=== PATIENT | female | born 1980 | race Caucasian/White ===

== ENCOUNTER 2024-01-14 11:21 | Inpatient (IN) | payer OTHER, SELFPAY ==
[2024-01-14] VITALS (8 sets, daily range): BP systolic 106–142; BP diastolic 74–105; BMI 22.0; BMI 19.5
--- NOTE | 2024-01-14 07:56 | ED.GENMED ---
History of Present Illness
General
Chief Complaint: Abdominal Symptoms
Time Seen by Provider: 01/14/24 07:42
History of Present Illness
History of Present Illness:
43-year-old female presents to the emergency department for evaluation of intractable headache and vomiting for the past 2 days. States the symptoms began with a mild to moderate headache that gradually worsened and gradually progressed into
persistent vomiting. Has been unable to tolerate any p.o. fluids. Reports generalized weakness and shakiness as well. Denies any abdominal pain or diarrhea. Reports short of breath symptoms when exerting herself but denies any symptoms of rest,
denies coughing or nasal congestion. No fevers or chills. No primary headache history
Review of Systems
Review of Systems
Allergies reviewed?: Yes
All Other Systems: ROS reviewed and negative except as documented in HPI and ROS
Phy Exam
Physical Exam
Physical Exam:
GEN: Well appearing, NAD, WDWN
HEENT: Oral mucosa moist, no scleral icterus, no nasal congestion
Cardiac: Tachycardic, regular
Lung: No respiratory distress, no tachypnea, lungs clear to auscultation bilaterally
Abdomen: Soft, nontender
MSK: No gross deformity or injuries
Skin: Good color, no pallor or jaundice, no rashes
Neuro: AO x3; CN II-XII grossly intact. BUE strength 5/5 in all pickett, sensation intact and symmetric. BLE strength 5/5 in all pickett, sensation intact and symmetric
Psych: Calm, cooperative
Course
Orders/Labs/Results
Orders:
Orders
01/14/24 07:14
Electrocardiogram (*1) Urgent
Reason for Study: Abdominal Pain
EKG- Treatment ONCE
01/14/24 07:55
0.9% Sodium Chloride 1000 ml [Nss] 1,000 ml IV BOLUS
Ondansetron Injectable [Zofran] 4 mg IV NOW STA
01/14/24 07:56
CT Head W/o Iv Contrast Urgent
Comment:
Reason For Exam: intractable h/a; vomiting
01/14/24 08:06
Add On- LAB Urgent
Tests Added?: HCG qualitative
Complete Blood Count/With Diff Urgent
Comprehensive Metabolic Panel Urgent
HCG, Serum Qualitative Screen Urgent
Comment: ADD ON
Magnesium Urgent
Serum Osmolality Urgent
Comment: ADD ON
01/14/24 08:42
Lactated Ringers [Lr] 1,000 ml IV BOLUS
01/14/24 08:58
Lactic Acid Urgent
Venous Blood Gas Urgent
%Oxygen/Room Air: 99
01/14/24 08:59
Ketorolac [Toradol] 15 mg IV NOW STA
01/14/24 09:05
COVID-19 Antigen Urgent
Source: Nasal Swab
01/14/24 09:22
Add On- LAB Urgent
Tests Added?: serum osmolality
01/14/24 10:41
Admit/Transfer Patient As Directed
Co-Sign Provider:
Level of Care: Inpatient admission
Assign to:: Medical/Surgical
Physician / Group: Rogerio
Diagnosis: Intractable vomiting, headache
Reason for Hospitalization: Pain control
Expected length of stay greater than two midnights?: Yes
ELOS- Estimated Length of Stay in days: 2
I certify the patient meets the requirements for IP care: Yes
PRN Pain Medication Management As Directed
May give lesser potent ordered pain med per pt: Yes
preference::
Protocol:: Medication orders for pain may be administered in a
manner that supports deferring to patient preference
when the pt is:
- Requesting an ordered lesser potent pain medication.
Least to most potent pain medications are defined
as: acetaminophen < NSAID < tramadol < opioids
(morphine, oxycodone, hydromorphone).
- Requesting a lesser dose of the same medication IF
ORDERED.
- Requesting a less intrusive route of administration
if both routes are prescribed by the provider (PO <
IV).
01/14/24 10:42
Code Status As Directed
Resuscitation Status: Full Code
01/14/24 10:50
Drug Screen, Urine [Urine Drug Abuse Screen] Routine
Abnormal Lab Results
01/14/24 01/14/24
08:06 08:58
MCV 104.5 H fL
(81.0-99.0)
MCH 35.0 H pg
(27.0-31.0)
Absolute Neuts (auto) 8.5 H 10^3/uL
(1.4-6.5)
Absolute Lymphs (auto) 0.6 L 10^3/uL
(1.2-3.4)
Absolute Monos (auto) 0.8 H 10^3/uL
(0.1-0.6)
Neutrophils % 85.5 H %
(42.2-75.2)
Lymphocytes % 6.2 L %
(20.5-51.1)
VBG pH 7.17 L*
(7.32-7.43)
VBG pCO2 32 L mmHg
(35-48)
VBG pO2 52 H mmHg
(30-50)
VBG HCO3 11.7 L mmol/L
(22-27)
Carbon Dioxide < 5 L* mmol/L
(22-30)
BUN 6 L mg/dl
(7-17)
Lactic Acid 3.5 H mmol/L
(0.7-2.0)
AST 82 H U/L
(14-36)
ALT 58 H U/L
(0-35)
Total Protein 8.8 H g/dl
(6.3-8.2)
Albumin 5.8 H g/dl
(3.5-5.0)
01/14/24 08:06
01/14/24 08:06
Vital Signs
Initial and Last Documented VS:
Initial Vital Signs
Temp Pulse Resp BP Pulse Ox
98.4 F 118 18 142/105 98
01/14/24 07:10 01/14/24 07:10 01/14/24 07:10 01/14/24 07:10 01/14/24 07:10
Last Documented Vital Signs
Temp Pulse Resp BP Pulse Ox
98.4 F 105 18 116/90 99
01/14/24 07:10 01/14/24 11:00 01/14/24 11:00 01/14/24 11:00 01/14/24 08:23
MDM/Problems Addressed
MDM/Problems Addressed:
43-year-old female presents with intractable vomiting and headache. She was found to have severe gnosis potentially due to intractable vomiting and profound dehydration however her otherwise normal electrolytes makes this unclear. IV fluids
initiated aggressively, will admit to the hospitalist service for further management. She has no reproducible abdominal tenderness, no indication for CT of the abdomen and pelvis. Imaging of the head was obtained due to the persistence of the
headache and the fact that the headache initiated the onset of her symptoms, this was unremarkable. She is not meningitic and there is no indication for lumbar puncture
*Critical Care Note
Total Time (30-74mins, 75-104mins- exclusive of procedures): Not Applicable
ED Attending Note
-
Portions of this chart may have been created with voice recognition software.� Occasional wrong word or��sound alike� substitutions may have occurred due to the inherent limitations of voice recognition software.
Discharge Plan
Departure
Patient Disposition: Admit
Date of Disposition: 01/14/24
Time of Disposition: 09:22
Admit to: Med/Surg
Presentation/result/management discussed w/ accepting MD/DO: Hospitalist
Discharge Problem:
Metabolic acidosis
Interventions
Interventions:
*Risk Screen - Suicide Last Done: 01/14/24 07:10
*General Assessment Last Done: 01/14/24 08:22
*Neglect/Abuse Screening Last Done: 01/14/24 07:10
ED- Fall Risk Assessment Last Done: 01/14/24 08:23
*ED COVID-19 Vaccine History Last Done: 01/14/24 07:10
HK-Blvfjz-Odlomgbdhk Assessment Last Done: 01/14/24 08:23
[2024-01-14] MEDS: NSS 1000 IV (08:02)
[2024-01-14] MEDS: ZOFRAN 4 MG IV ×3 (08:02→19:30)
[2024-01-14 08:19] LABS: % Basophils 0.4 % (0-2); % Immature Granulocytes 0.3 % (0-0.5); % Lymphocytes 6.2 % (20.5-51.1); % Monocytes 7.6 % (1.7-9.3); % Neutrophils 85.5 % (42.2-75.2); Absolute Lymphocytes 0.6 10^3/uL (1.2-3.4); Absolute Monocytes 0.8 10^3/uL (0.1-0.6); Absolute Neutrophils 8.5 10^3/uL (1.4-6.5); Hematocrit 44.2 % (37.0-47.0); Hemoglobin 14.8 g/dL (12.0-16.0); Mean Corp Hgb Conc. 33.5 g/dL (33.0-37.0); Mean Corpuscular Volume 104.5 fL (81.0-99.0); Mean Platelet Volume 9.7 fL (7.4-10.4); Nucleated Red Blood Cells % 0 %; Platelet Count 204 10^3/uL (130-400); Red Blood Cell Count 4.23 10^6/uL (4.20-5.40); Red Cell Dist. Width 11.9 % (11.5-14.5)
[2024-01-14 08:40] LABS: ALT (SGPT) 58 U/L (0-35); AST (SGOT) 82 U/L (14-36); Albumin 5.8 g/dl (3.5-5.0); Alkaline Phosphatase 92 U/L (38-126); Blood Urea Nitrogen 6 mg/dl (7-17); Calcium 9.9 mg/dl (8.4-10.2); Carbon Dioxide < 5 mmol/L (22-30); Chloride 99 mmol/L (98-107); Estimated Creatinine Clearance 86 ml/min; Glucose 90 mg/dl (70-99); Magnesium 1.7 mg/dl (1.6-2.3); Potassium 4.9 mmol/L (3.5-5.1); Sodium 139 mmol/L (135-145); Total Bilirubin 1.1 mg/dl (0.2-1.3); Total Protein 8.8 g/dl (6.3-8.2); eGFR > 60.00
[2024-01-14 08:48] LABS: HCG, Serum Qualitative Screen Negative
[2024-01-14] MEDS: LR 1000 IV ×2 (08:54→12:50)
[2024-01-14] MEDS: TORADOL 15 MG IV (09:04)
[2024-01-14 09:06] LABS: Venous Blood Gas B.E. -15.7 mmol/L (-4 to +4); Venous Blood Gas HCO3 11.7 mmol/L (22-27); Venous Blood Gas O2 Sat % 83.2 %; Venous Blood Gas pCO2 32 mmHg (35-48); Venous Blood Gas pO2 52 mmHg (30-50)
[2024-01-14 09:08] LABS: Venous Blood Gas pH 7.17 (7.32-7.43)
[2024-01-14 09:19] LABS: Lactic Acid 3.5 mmol/L (0.7-2.0)
[2024-01-14 09:27] LABS: COVID-19 Antigen Negative (Negative)
[2024-01-14 10:41] LABS: Osmolality Serum 291 mOsm/kg (275-300)
--- NOTE | 2024-01-14 10:46 | HPS.HSE ---
Family Physician
-
Family Physician: Juan Elder MD
Chief Complaint
-
Nausea vomiting and headache
History of Present Illness
43-year-old female who developed severe frontal headache Sunday evening after dinner and subsequently developed nausea and vomiting.
Denies history of headaches. The headache is a pressure sensation in the front of her head.
Denies any neck pain or stiffness. Denies fevers or chills.
Denies any travel recently. Denies sick contacts. Denies confusion. at the bedside.
Took 400 mg of ibuprofen this morning without relief. Came into the emergency room for evaluation of the headache and persistent vomiting.
Has not been able to keep any food or liquids down since Sunday night.
Medical History
Past Medical History
Past Medical History: Reports Other
Additional Past Medical History:
AVNRT
Anxiety disorder
essential hypertension
Past Surgical History: Reports Gynocological
Social History
Tobacco: Former Smoker
Alcohol: Occasional
Drug: None
Personal:
Living: With Family
Employment: Employed
Family History
Family History: Not pertinent
Allergies / Home Medications
Allergies reflects when Allergies were last updated in [facility].
Home Medications with original date entered in [facility]
Allergy/Medication List:
Allergies
Allergy/AdvReac Type Severity Reaction Status Date / Time
No Known Allergies Allergy Verified 01/14/24 07:13
Home Medications
acetaminophen 325 mg tablet (Tylenol) 650 mg PO DAILYPRN PRN MILD PAIN 03/21/23
metoprolol succinate 25 mg tablet,extended release 24 hr 25 mg PO DAILY 03/21/23
calcium carbonate 333 mg-magnesium oxide 133 mg-zinc gluc 5 mg tablet 1 tab PO DAILY 01/14/24
escitalopram oxalate 20 mg tablet (Lexapro) 20 mg PO DAILY 01/14/24
metoprolol succinate 25 mg tablet,extended release 24 hr (Toprol XL) 25 mg PO DAILYPRN PRN afib/rapid heart beat 01/14/24
trazodone 50 mg tablet 50 mg PO HSPRN PRN sleep 01/14/24
Review of Systems
-
History Source: Patient
A 12 point ROS was completed and negative except as noted: Yes
Physical Exam
Vital Signs
Vital Signs
Temp Pulse Resp BP Pulse Ox
98.4 F 101 16 126/83 99
01/14/24 07:10 01/14/24 09:30 01/14/24 09:30 01/14/24 08:06 01/14/24 08:23
Physical Exam
General: Well Developed, Well Nourished, No Apparent Distress and Comfortable
HEENT: NormoCephalic and Anicteric; No Moist mucous membranes
Respiratory: Clear
Cardiac: S1/S2 and Regular Rhythm
Breast: Deferred by me
GI: Soft, Non Tender and Non Distended
Genito-urinary: Deferred by me
Musculoskeletal: No Clubbing, No Cyanosis and No Edema
Skin: Warm and Dry
Neuro: AO x 3, No Motor Deficits and Cranial Nerves Intact
Hematologic/Lymphatic: No Lymphadenopathy
Psych: Calm
Laboratory Results
-
01/14/24 08:06
01/14/24 08:06
Laboratory Results
Lactic Acid 3.5 mmol/L (0.7-2.0) H 01/14/24 08:58
Total Bilirubin 1.1 mg/dl (0.2-1.3) 01/14/24 08:06
AST 82 U/L (14-36) H 01/14/24 08:06
ALT 58 U/L (0-35) H 01/14/24 08:06
Alkaline Phosphatase 92 U/L (38-126) 01/14/24 08:06
Impression/Plan
-
Intractable headache -no known history of headaches. CT head unremarkable. No signs or symptoms of meningitis or infectious etiology. Consult neurology for assistance. IV Toradol as needed.
Intractable vomiting -unclear etiology. Continue IV Zofran as needed. IV fluids. UDS.
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 Continue metoprolol.
Essential hypertension -stable.
Anxiety disorder -continue meds.
Full code
--- NOTE | 2024-01-14 11:39 | CON.NEURO4 ---
Consultation - Neurology 4
-
CONSULTING PHYSICIAN: Dangelo Boston MD neurology
REFERRING PHYSICIAN: Hospitalist
DICTATED BY: Dangelo Boston MD
DATE/TIME OF REQUEST: January 14, 2024
DATE/TIME OF CONSULTATION: January 14, 2020
Reason for Consultation: Headaches
History of Present Illness:
This is a 43 year old right) handed female) who has presented to the hospital with intractable nausea and vomiting with headaches since Sunday. She gives a history of tachycardia syndrome, AV node ablation who had been in usual state of health
till Sunday evening. At that time she had dinner at a [employer] restaurant. Subsequently she developed headaches at night with recurrent episodes of nausea and vomiting.
Headaches are bifrontal tight without aura, without photophobia sonophobia. No associated dizziness.
Past Medical History: Tachycardia
Surgical History: AV node ablation
Family History: Noncontributory
Social History: lives at home with her family. Does not smoke occasional glass of wine
Allergies: None
Home Medications: Metoprolol Lexapro trazodone
Review of Symptoms:
Patient denies any fever, headache, chest pain, shortness of breath, GI or symptoms.
�Per the HPI.�All systems are reviewed negative except above.
� Vital Signs:
The patient has aTemp 36.9 C [id number] 18 BP 116/90Pulse Ox 99
Physical Exam:
The patient is afebrile, heart sounds S1 and S2 are present with tachycardia, and chest is clear to auscultation bilaterally.
- If not clear, describe.
Neurologic Examination:
The patient is awake, alert and oriented x 3. She) is able to follow commands and answer questions appropriately. There is no aphasia or dysarthria. On cranial nerve assessment, pupils are 3 mm bilateral, round and reactive to light and
accommodation. Visual pickett are full. Extraocular movements are intact. Facial sensations are intact and bilaterally symmetrical, there is no facial asymmetry. Hearing is intact bilaterally to normal conversation volume. Tongue palate and uvula
are midline. Sternocleidomastoid strengths are full bilaterally. Motor strengths are 5/5 bilateral upper and lower extremities on medical research [place] scale. There is no drift or involuntary movement noted. Deep tendon reflexes are 2+ bilateral
upper and lower extremities and Babinski is absent bilaterally. Sensations of pain, touch, temperature and vibration are intact and bilaterally symmetrical. There was no extinction noted on double simultaneous stimulation. Coordination is intact by
finger to nose bilaterally.
Lab Results: Addendum
Neuro Imaging: CT head: Cortical atrophy. Minimal small vessel disease. Normal ventricles
Impression:
(Mrs.) PHAN MCKEON is a 43 year old F who has presented to the hospital with (symptoms/chief complaint).
Differentials for the patient's presentation include:
1. Migraine
Recommendations:
1. IV fluids
2. Pepcid 20mg IV daily
3. Maalox
4. Tylenol#3 prn
5. Metoprolol dual therapy for migraine prophylaxis and tachycardia syndrome
6. Metoclopramide prn
Discussed patient care with:
Allergies
-
Allergies
Allergy/AdvReac Type Severity Reaction Status Date / Time
No Known Allergies Allergy Verified 01/14/24 07:13
Vital Signs and Labs
-
Vital Signs and Labs:
Vital Signs
Temp Pulse Resp BP Pulse Ox
36.9 C 105 18 116/90 99
01/14/24 07:10 01/14/24 11:00 01/14/24 11:00 01/14/24 11:00 01/14/24 08:23
Lab Results
01/14/24 08:06
01/14/24 08:06
Sodium 139 mmol/L (135-145) 01/14/24 08:06
Potassium 4.9 mmol/L (3.5-5.1) 01/14/24 08:06
BUN 6 mg/dl (7-17) L 01/14/24 08:06
Glucose 90 mg/dl (70-99) 01/14/24 08:06
Calcium 9.9 mg/dl (8.4-10.2) 01/14/24 08:06
Medications
-
Active Medications
Generic Name Dose Route Start Last Admin
Trade Name Freq PRN Reason Stop Dose Admin
Acetaminophen/Codeine Phosphate 1 tablet 01/14/24 11:34
Acetaminophen (300 Mg)/Codeine (30 Mg) Tablet PO 02/11/24 11:29
Q4HPRN PRN
headache
Lorazepam 1 mg 01/14/24 11:27
Lorazepam 2 Mg/Ml Vial IV 02/11/24 11:26
Q4HPRN PRN
Anxiety
Sodium Chloride 0.5 ml 01/14/24 11:32
Nss (Pf) 10 Ml Vial For Ativan 1 Mg Dose IV 02/11/24 11:31
Q4HPRN PRN
IV LORAZEPAM DILUTION
Home Medications
�Medication �Instructions �Recorded
acetaminophen 325 mg tablet 650 mg PO DAILYPRN PRN MILD PAIN 03/21/23
(Tylenol)
metoprolol succinate 25 mg 25 mg PO DAILY 03/21/23
tablet,extended release 24 hr
calcium carbonate 333 mg-magnesium 1 tab PO DAILY 01/14/24
oxide 133 mg-zinc gluc 5 mg tablet
escitalopram oxalate 20 mg tablet 20 mg PO DAILY 01/14/24
(Lexapro)
metoprolol succinate 25 mg 25 mg PO DAILYPRN PRN afib/rapid 01/14/24
tablet,extended release 24 hr heart beat
(Toprol XL)
trazodone 50 mg tablet 50 mg PO HSPRN PRN sleep 01/14/24
[2024-01-14] MEDS: PEPCID 20 MG IV (12:45)
[2024-01-14] MEDS: NSS (PRESERVATIVE FREE) 8 ML IV (12:45)
[2024-01-14] MEDS: MAALOX 30 ML PO (12:46)
--- NOTE | 2024-01-14 13:10 | PTCARENOTE ---
pt presents from ED via stretcher. pt is AAO*3, vss, c/o headache and nausea. pt oriented to the room. call [facility] within the reach. plan of care ongoing.
[2024-01-14] MEDS: TYLENOL #3 1 TABLET PO (13:23)
[2024-01-14 16:22] LABS: Amphetamines Negative (Negative); Barbiturates Negative (Negative); Benzodiazepines Negative (Negative); Buprenorphine Negative (Negative); Cocaine Negative (Negative); Marijuana Negative (Negative); Methadone Negative (Negative); Methamphetamines Negative (Negative); Opiates Positive (Negative); Phencyclidine Negative (Negative); Tricyclic Antidepressants Negative (Negative)
[2024-01-14 16:39] LABS: Fentanyl, Urine Negative (Negative)
[2024-01-14 16:54] LABS: Vitamin B12 675 pg/ml (239-931)
[2024-01-14] MEDS: LOVENOX 40 MG SC (17:18)
[2024-01-14] MEDS: TORADOL 30 MG IV (19:29)
[2024-01-14] MEDS: TOPROL XL 25 MG PO (19:29)
[2024-01-14] MEDS: DESYREL 50 MG PO (20:16)
[2024-01-15 07:15] VITALS: BP 137/85
[2024-01-15] MEDS: LEXAPRO 20 MG PO (07:51)
[2024-01-15] MEDS: TOPROL XL 25 MG PO (07:51)
[2024-01-15 08:42] LABS: ALT (SGPT) 58 U/L (0-35); AST (SGOT) 85 U/L (14-36); Albumin 4.7 g/dl (3.5-5.0); Alkaline Phosphatase 73 U/L (38-126); Blood Urea Nitrogen 7 mg/dl (7-17); Calcium 9.7 mg/dl (8.4-10.2); Carbon Dioxide 18 mmol/L (22-30); Chloride 101 mmol/L (98-107); Estimated Creatinine Clearance 112 ml/min; Glucose 80 mg/dl (70-99); Potassium 4.6 mmol/L (3.5-5.1); Sodium 138 mmol/L (135-145); Total Bilirubin 1.4 mg/dl (0.2-1.3); Total Protein 7.3 g/dl (6.3-8.2); eGFR > 60.00
--- NOTE | 2024-01-15 10:46 | W.PN.HOSP.TC ---
Today's Communication/Plan
-
Advance diet
Discharge
Assessment / Plan
Assessment / Plan
Gen-AAOx3, NAD
HEENT-NC, AT, anicteric, clear oral mm
Neck-supple
CV-reg, no M, +S1/S2
Lungs-clear B/L
Abd-soft, NT, ND
Ext-no edema
Musculoskeletal-no cyanosis, clubbing
Skin-warm and dry
Neuro-grossly non-focal
Psych-calm, cooperative
Intractable headache -no known history of headaches. Headache resolved with conservative management. Neurology input noted.
Intractable vomiting -resolved. Tolerating clears. Advance to regular diet.
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 Continue metoprolol.
Essential hypertension -stable.
Anxiety disorder -continue meds.
Full code
Dispo -stable for discharge if she tolerates solids. Patient eager to go home. Outpatient follow-up. She is requesting as needed Zofran on discharge.
32 minutes spent in discharge process.
Anticipated Discharge: Today
Subjective/Interval History
-
Date of Service: January 15, 2024
Patient seen and examined. Feels much better. Denies any further headache or vomiting.
Objective Data
-
Labs:
Laboratory Results
01/15/24
07:17
Sodium 138
Potassium 4.6
Chloride 101
Carbon Dioxide 18 L
BUN 7
Creatinine 0.6
Glucose 80
Calcium 9.7
Total Bilirubin 1.4 H
AST 85 H
ALT 58 H
Alkaline Phosphatase 73
Vital Signs:
Vital Signs
Temp Pulse Resp BP Pulse Ox
99.3 F 104 18 137/85 98
01/15/24 07:15 01/15/24 07:15 01/15/24 07:15 01/15/24 07:15 01/15/24 07:50
I&O
01/14/24 01/15/24 01/16/24
06:59 06:59 06:59
Intake Total 690 / 690
Balance 690 / 690
Review of Systems
-
History Source: Patient
All other systems: Reviewed and negative
--- NOTE | 2024-01-15 10:51 | W.DS.TRANS ---
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
-
Discharge Instructions:
Discharge Diagnosis/Procedures Severe headache, intractable vomiting
Diet Regular
Activity As tolerated
Driving Restrictions As prior to admission
Bathing Restrictions None
Instructions:
Stand-Alone Forms:
Changes to Home Medications: No
Discharge Medications:
DC Medications w/original date entered in [employer]
acetaminophen 325 mg tablet (Tylenol) 650 mg PO DAILYPRN PRN MILD PAIN 03/21/23
calcium carbonate 333 mg-magnesium oxide 133 mg-zinc gluc 5 mg tablet 1 tab PO DAILY 01/14/24
escitalopram oxalate 20 mg tablet (Lexapro) 20 mg PO DAILY 01/14/24
trazodone 50 mg tablet 50 mg PO HSPRN PRN sleep 01/14/24
metoprolol succinate 25 mg tablet,extended release 24 hr 25 mg PO BID #0 tabs 01/15/24
ondansetron 4 mg disintegrating tablet 4 mg PO Q6H PRN nausea and vomiting #14 tabs 01/15/24
Home Medication Changes
Pending Results: No
--- NOTE | 2024-01-15 11:03 | CM ---
Brook was admitted from home with n/v and headache. She did eat out at a restaurant with her , but otherwise offers no other contributing factors.
She lives with her in a 2 story home with 1 entry step and a full flight to the second floor where she has her bedroom and a full bathroom. Brook is (I) in ambulation and ADLs.
No hx of DME, SNF or Home Care.
Plan: Brook will return home with her with no needs.
PCP: Juan Islas
Pharmacy: [facility]
--- NOTE | 2024-01-15 12:15 | W.PN.NEURO.1 ---
Today's Communication / Plan
-
.
Neuro Assessment/Plan
Assessment
This is a 43-year-old female who presented to on 01/14/24 with report of intractable headache and vomiting for two days. She denies any photo/phonophobia/visual changes and has no history of migraine headaches.
-CT head 01/14/24: No acute intracranial abnormality.
I. Intractable headache in the setting of vomiting and dehydration, now resolved.
Plan
-Do not see a role for continuation of migraine prevention or rescue medications as headache has resolved and did not have migrainous features.
-Patient may follow-up with Neurology as an outpatient as-needed if headaches return.
Subjective/Objective
Subjective Data
Date of Service: January 15, 2024
No acute events overnight. Patient reports feeling back at her baseline today, her headache has completely resolved. She denies any headache, dizziness, vision changes, photo/phonophobia, nausea, speech/swallow difficulty, numbness, weakness, chest
pain, palpitations, and shortness of breath.
Objective Data
Vital Signs
Temp Pulse Resp BP Pulse Ox
99.3 F 104 18 137/85 98
01/15/24 07:15 01/15/24 07:15 01/15/24 07:15 01/15/24 07:15 01/15/24 07:50
Lab Results
01/14/24 08:06
01/15/24 07:17
Sodium 138 mmol/L (135-145) 01/15/24 07:17
Potassium 4.6 mmol/L (3.5-5.1) 01/15/24 07:17
BUN 7 mg/dl (7-17) 01/15/24 07:17
Glucose 80 mg/dl (70-99) 01/15/24 07:17
Calcium 9.7 mg/dl (8.4-10.2) 01/15/24 07:17
Vitamin B12 Cancelled 01/14/24 11:45
Ur Buprenorphine Negative (Negative) 01/14/24 16:01
Patient Allergies
No Known Allergies Allergy (Verified 01/14/24 07:13)
Review of Systems
-
History Source: Patient
EENT: Negative Blurry Vision, Decreased Vision or Swallowing Difficulty
Respiratory: Negative Cough or Trouble Breathing
Cardiac: Negative Chest Pain or Palpitations
Abdomen/GI: Negative Nausea
Neuro: Negative Dizzy, Headache, Weakness, Numbness, Ataxia, Tremors or Speech Problem
Physical Exam
-
General: Well Developed, Well Nourished and No Apparent Distress
Eyes: No Ptosis and PERRLA
HEENT: Normocephalic and Atraumatic
Neck: Full Range of Motion
GI: Non-distended
Skin: Unremarkable
Extremities: No Clubbing, No Cyanosis and No Edema
Psych: Unremarkable
Extended Neurological Exam
Mood & Affect: Mood Unremarkable and Affect Unremarkable
Attention Span & Concentration: Awake, Alert and Interactive
Memory: Unremarkable and Able to Recall
Tremor: Hand Tremor Absent and Head Tremor Absent
Involuntary Movement: None
Speech: Quality Unremarkable, Quantity Unremarkable and Rate of Production Unremarkable
Cranial Nerve II: Left Eye: Pupillary Reactivity Unremarkable, Pupillary Size Unremarkable and Visual [place] Intact
Cranial Nerve II: Right Eye: Pupillary Reactivity Unremarkable, Pupillary Size Unremarkable and Visual [place] Intact
Cranial Nerves III, IV, : Extraocular Movement: Extraocular Movement Full in all Directions
Cranial Nerve VII: Facial Symmetry: Normal Facial Symmetry
Cranial Nerve VIII: Hearing: Unremarkable Hearing to Normal Conversational Volume
Muscle Strength, Overall: Full Throughout
Coordination: [id number] Testing Unremarkable
Data Reviewed
-
CT Head: Report Reviewed and Image Reviewed
Labs: Report Reviewed
Reviewed with: Physician and Patient
Medications
-
Active Medications
Generic Name Dose Route Start Last Admin
Trade Name Freq PRN Reason Stop Dose Admin
Acetaminophen 650 mg 01/14/24 12:21
Acetaminophen 325 Mg Tablet PO 02/11/24 12:20
Q6HPRN PRN
mild pain/ fever>100.5F
Acetaminophen/Codeine Phosphate 1 tablet 01/14/24 11:34 01/14/24 13:23
Acetaminophen (300 Mg)/Codeine (30 Mg) Tablet PO 02/11/24 11:29 1 tablet
Q4HPRN PRN Administration
headache
Enoxaparin Sodium 40 mg 01/14/24 18:00 01/14/24 17:18
Enoxaparin Sodium 40 Mg/0.4 Ml Syringe SC 02/11/24 17:59 40 mg
QPM MIRZA Administration
Escitalopram Oxalate 20 mg 01/15/24 08:00 01/15/24 07:51
Escitalopram 20 Mg Tablet PO 02/12/24 07:59 20 mg
DAILY MIRZA Administration
Ketorolac Tromethamine 30 mg 01/14/24 15:00 01/14/24 19:29
Ketorolac 30 Mg/Ml Injection IV 01/19/24 14:59 30 mg
Q6HPRN PRN Administration
headache
Lorazepam 1 mg 01/14/24 11:27
Lorazepam 2 Mg/Ml Vial IV 02/11/24 11:26
Q4HPRN PRN
Anxiety
Metoclopramide HCl 10 mg 01/14/24 22:33
Metoclopramide 10 Mg/2 Ml Vial IV 02/11/24 22:32
Q6HPRN PRN
nausea
Metoprolol Succinate 25 mg 01/14/24 20:00 01/15/24 07:51
Metoprolol 25 Mg Extended Release Tablet PO 02/11/24 19:59 25 mg
BID MIRZA Administration
Ondansetron HCl 4 mg 01/14/24 12:21 01/14/24 19:30
Ondansetron 4 Mg/2 Ml Vial IV 02/11/24 12:20 4 mg
Q6HPRN PRN Administration
NAUSEA/VOMITING
Sodium Chloride 0.5 ml 01/14/24 11:32
Nss (Pf) 10 Ml Vial For Ativan 1 Mg Dose IV 02/11/24 11:31
Q4HPRN PRN
IV LORAZEPAM DILUTION
Sodium Chloride 0 flush 01/14/24 23:00
Sodium Chloride 0.9% (Flush) Syringe IV 02/11/24 22:59
PER PROTOCOL MIRZA
Trazodone HCl 50 mg 01/14/24 12:21 01/14/24 20:16
Trazodone 50 Mg Tablet PO 02/11/24 12:20 50 mg
HSPRN PRN Administration
sleep
Home Medications
�Medication �Instructions �Recorded
acetaminophen 325 mg tablet 650 mg PO DAILYPRN PRN MILD PAIN 03/21/23
(Tylenol)
calcium carbonate 333 mg-magnesium 1 tab PO DAILY 01/14/24
oxide 133 mg-zinc gluc 5 mg tablet
escitalopram oxalate 20 mg tablet 20 mg PO DAILY 01/14/24
(Lexapro)
trazodone 50 mg tablet 50 mg PO HSPRN PRN sleep 01/14/24
metoprolol succinate 25 mg 25 mg PO BID #0 tabs 01/15/24
tablet,extended release 24 hr
ondansetron 4 mg disintegrating 4 mg PO Q6H PRN nausea and 01/15/24
tablet vomiting #14 tabs
== END 2024-01-15 12:51 | disposition home or self-care (01) | DRG 641 ==
LOC: 4 EAST ACU 11:21
PROVIDERS: Physician Assistant; ADMITTING PHYSICIAN Hospitalist; CONSULT PHYSICIAN Psychiatry & Neurology Neurology; EMERGENCY PHYSICIAN Emergency Medicine; FAMILY PHYSICIAN Internal Medicine
DX: E87.20 Acidosis, unspecified (principal); I10 Essential (primary) hypertension; E86.9 Volume depletion, unspecified; F41.9 Anxiety disorder, unspecified; Z79.899 Other long term (current) drug therapy; Z86.79 Personal history of other diseases of the circulatory system; Z87.891 Personal history of nicotine dependence
CPT/HCPCS: 70450; 80053; 80306; 80307; 82607; 82805; 83605; 83735; 83930; 84703; 85025; 87811; 93005; 96361; 96374; 96375; 99285